=== PATIENT | male | born 1985 | race Caucasian/White ===

== ENCOUNTER 2016-09-11 10:24 | Emergency (ER) | payer MEDICARE, MEDICAID, OTHER ==
[~2016-09-11] VITALS: Ht 167.6 cm; Wt 96.0 kg
[~2016-09-11 10:24] MED LIST: CYMB60CA PO; GEOD80CA PO; LISI-363 PO; METF500 PO; NOVO7030P2 SQ; TRAZ100 PO
[2016-09-11 10:31] VITALS: BP 156/96; PULSE 90; RESP 18; TEMP 97.8; O2SAT 96
[2016-09-11 11:03] LABS: AUTOMATED NEUTROPHIL # 6.9 TH/MM3 (1.8-7.7); BASOPHIL # 0.1 TH/MM3 (0-0.2); BASOPHIL % 0.9 % (0.0-2.0); EOSINOPHIL # 0.5 TH/MM3 (0-0.4); EOSINOPHIL % 4.6 % (0.0-4.0); HEMATOCRIT 46.7 % (39.0-51.0); HEMO FLAGS DIFF FINAL; LYMPH % 28.2 % (9.0-44.0); LYMPHOCYTE # 3.3 TH/MM3 (1.0-4.8); MEAN CELL VOLUME 81.8 FL (80.0-100.0); MEAN CORPUSCULAR HEMOGLOBIN 27.6 PG (27.0-34.0); MEAN CORPUSCULAR HGB CONC 33.8 % (32.0-36.0); MONO % 8.2 % (0.0-8.0); NEUT % 58.1 % (16.0-70.0); PLATELET COUNT 255 TH/MM3 (150-450); RED BLOOD COUNT 5.71 MIL/MM3 (4.50-5.90); WHITE BLOOD COUNT 11.9 TH/MM3 (4.0-11.0)
[2016-09-11 11:24] LABS: BLOOD, URINE NEG (NEG); GLUCOSE,URINE 1000 mg/dL (NEG); KETONE, URINE 10 mg/dL (NEG); NITRITE,URINE NEG (NEG); PH, URINE 5.5 (5.0-8.5); URINE COLOR YELLOW (YELLW/STRAW)
[2016-09-11 11:25] LABS: COMMENT (UR) CULT NOT INDICATED; CULTURE IF INDICATED CULT NOT INDICATED
[2016-09-11 11:29] LABS: AMPHETAMINE, URINE NEG (NEG); BARBITURATES, URINE NEG (NEG); COCAINE, URINE NEG (NEG)
[2016-09-11 11:38] LABS: ANION GAP 10 MEQ/L (5-15); AST (GOT) 22 U/L (15-37); BICARBONATE 26.7 MEQ/L (21.0-32.0); BLOOD UREA NITROGEN 12 MG/DL (7-18); CHLORIDE 103 MEQ/L (98-107); GLOMERULAR FILTRATION RATE 97 ML/MIN (>89); POTASSIUM 4.4 MEQ/L (3.5-5.1); SODIUM (NA) 140 MEQ/L (136-145)
[2016-09-11 11:42] LABS: ALKALINE PHOSPHATASE 77 U/L (45-117); ALT (GPT) 15 U/L (12-78); TOTAL BILIRUBIN ADULT 0.2 MG/DL (0.2-1.0)
[2016-09-11 12:55] VITALS: BP 148/88; PULSE 89; RESP 20; O2SAT 97
--- NOTE | 2016-09-11 13:19 | PD ---
HPI Chief Complaint: Psychiatric Symptoms Time Seen by Provider: 13:16 Travel History International Travel<30 days: No Contact w/Intl Traveler<30days: No Traveled to known affect area: No History of Present Illness HPI 31-year-old male presents to the emergency Department under Damon act by local police. The patient has a history of schizophrenia. According the Damon act, his mother stated that he took 15 Klonopin today. The patient states he took 5 or 6 Klonopin. The patient denies any thoughts of wanting to hurt himself or anybody else at this time. He apparently has the mental capacity of a 10-year- old according to the Damon act. The patient is alert and oriented to person, place, time. The patient denies any medical complaints at this time. He does have a history of diabetes. He does admit to drinking alcohol and smoking marijuana. PFSH Past Medical History Arthritis: No Asthma: No Anxiety: Yes Depression: Yes Heart Rhythm Problems: No Cancer: No High Cholesterol: Yes Chemotherapy: No Chest Pain: No Congestive Heart Failure: No COPD: No Cerebrovascular Accident: No Diabetes: Yes Patient Takes Glucophage: Yes Diminished Hearing: No Gastrointestinal Disorders: Yes (APPENDECTOMY) GERD: No Genitourinary: No Hiatal Hernia: No Hypertension: Yes Immune Disorder: No Kidney Stones: No Musculoskeletal: No Neurologic: Yes (diabetic neuropathy) Psychiatric: Yes (SCHIZOAFFECTIVE DO) Reproductive: No Respiratory: No Migraines: No Myocardial Infarction: No Radiation Therapy: No Renal Failure: No Schizophrenia: Yes Seizures: No Sickle Cell Disease: No Sleep Apnea: No Thyroid Disease: No Ulcer: No Tetanus Vaccination: > 5 Years Past Surgical History Abdominal Surgery: No Appendectomy: Yes Cardiac Surgery: No Ear Surgery: No Endocrine Surgery: No Eye Surgery: No Genitourinary Surgery: Yes (APPENDECTOMY) Gynecologic Surgery: No Insulin Pump: No Joint Replacement: No Neurologic Surgery: No Oral Surgery: No Pacemaker: No Thoracic Surgery: No Tonsillectomy: Yes Other Surgery: Yes (TONSILLECTOMY APPENDECTOMY ) Social History Alcohol Use: Yes (daily - liquor, beer, rubbing alcohol) Tobacco Use: Yes (1ppd) Substance Use: Yes Allergies-Medications (Allergen,Severity, Reaction): Coded Allergies: [place] (Unverified Allergy, Unknown, 09/11/16) Reported Meds & Prescriptions Reported Meds & Active Scripts Active Review of Systems Except as stated in HPI: all other systems reviewed are Neg Physical Exam Narrative GENERAL: Well-developed well-nourished male patient, afebrile. SKIN: Warm and dry. HEAD: Normocephalic. Atraumatic. EYES: No scleral icterus. No injection or drainage. NECK: Supple, trachea midline. No JVD or lymphadenopathy. CARDIOVASCULAR: Regular rate and rhythm without murmurs, gallops, or rubs. RESPIRATORY: Breath sounds equal bilaterally. No accessory muscle use. Lungs sounds are clear to auscultation. GASTROINTESTINAL: Abdomen soft, non-tender, nondistended. MUSCULOSKELETAL: No cyanosis, or edema. BACK: Nontender without obvious deformity. No CVA tenderness. PSYCHIATRIC: No delusional thought processes. No hallucinations. Data Data Last Documented VS Vital Signs Date Time Temp Pulse Resp B/P Pulse Ox O2 Delivery O2 Flow Rate FiO2 09/11/16 12:55 89 20 148/88 97 09/11/16 10:31 97.8 Orders Complete Blood Count With Diff (09/11/16 10:46) Comprehensive Metabolic Panel (09/11/16 10:46) Psych Screen (09/11/16 10:46) Urinalysis - C+S If Indicated (09/11/16 10:52) Salicylates (Aspirin) (09/11/16 10:52) Drug Screen, Random Urine (09/11/16 10:54) Alcohol (Ethanol) (09/11/16 10:54) Electrocardiogram (09/11/16 ) Tylenol (Acetaminophen) (09/11/16 13:14) Call Poison Control (09/11/16 13:14) Diet Diabetic (09/11/16 Dinner) Insulin Human Regular Inj (Novolin R Inj (09/11/16 15:45) Labs Laboratory Tests Test 09/11/16 09/11/16 09/11/16 10:30 10:40 10:50 Salicylates Level 2.3 MG/DL Urine Color YELLOW Urine Turbidity CLEAR Urine pH 5.5 Urine Specific [place] 1.042 Urine Protein NEG mg/dL Urine Glucose (UA) 1000 mg/dL Urine Ketones 10 mg/dL Urine Occult Blood NEG Urine Nitrite NEG Urine Bilirubin NEG Urine Urobilinogen LESS THAN 2.0 MG/DL Urine Leukocyte Esterase NEG Urine RBC LESS THAN 1 /hpf Urine WBC LESS THAN 1 /hpf Microscopic Urinalysis Comment CULT NOT INDICATED Urine Opiates Screen NEG Urine Barbiturates Screen NEG Urine Amphetamines Screen NEG Urine Benzodiazepines Screen NEG Urine Cocaine Screen NEG Urine Cannabinoids Screen POS White Blood Count 11.9 TH/MM3 Red Blood Count 5.71 MIL/MM3 Hemoglobin 15.8 GM/DL Hematocrit 46.7 % Mean Corpuscular Volume 81.8 FL Mean Corpuscular Hemoglobin 27.6 PG Mean Corpuscular Hemoglobin 33.8 % Concent Red Cell Distribution Width 16.0 % Platelet Count 255 TH/MM3 Mean Platelet Volume 8.3 FL Neutrophils (%) (Auto) 58.1 % Lymphocytes (%) (Auto) 28.2 % Monocytes (%) (Auto) 8.2 % Eosinophils (%) (Auto) 4.6 % Basophils (%) (Auto) 0.9 % Neutrophils # (Auto) 6.9 TH/MM3 Lymphocytes # (Auto) 3.3 TH/MM3 Monocytes # (Auto) 1.0 TH/MM3 Eosinophils # (Auto) 0.5 TH/MM3 Basophils # (Auto) 0.1 TH/MM3 CBC Comment DIFF FINAL Differential Comment Sodium Level 140 MEQ/L Potassium Level 4.4 MEQ/L Chloride Level 103 MEQ/L Carbon Dioxide Level 26.7 MEQ/L Anion Gap 10 MEQ/L Blood Urea Nitrogen 12 MG/DL Creatinine 0.90 MG/DL Estimat Glomerular Filtration 97 ML/MIN Rate Random Glucose 320 MG/DL Calcium Level 8.4 MG/DL Total Bilirubin 0.2 MG/DL Aspartate Amino Transf 22 U/L (AST/SGOT) Alanine Aminotransferase 15 U/L (ALT/SGPT) Alkaline Phosphatase 77 U/L Total Protein 6.6 GM/DL Albumin 3.3 GM/DL Acetaminophen Level LESS THAN 2.0 MCG/ML Ethyl Alcohol Level LESS THAN 3 MG/DL MDM Medical Decision Making Medical Screen Exam Complete: Yes Emergency Medical Condition: Yes Medical Record Reviewed: Yes Differential Diagnosis Suicidal ideation versus drug-induced mood disorder versus schizophrenia versus bipolar versus Klonopin overdose Narrative Course 31-year-old male presents to the emergency Department under Damon act for suicidal ideation. According the Damon act, he took 15 Klonopin. However, the patient states he took 5 or 6 and "gave the rest away". CBC shows leukocytosis of 11.9. CMP shows glucose of 320. Urine drug screen is positive for cannabinoids. Alcohol level is less than 3. Salicylate level is 2.3. Tylenol level is less than 2.0. EKG shows sinus rhythm, heart rate 86, no acute ST changes. 1436 - I spoke to poison control who recommended supportive care, monitor for a minimum of 4 hours. Patient was observed in the emergency department for 5-1/2 hours. Patient remains asymptomatic and states he feels fine. He states he would like to talk to the psychiatrist "like to go home". Patient is medically cleared for psychiatric screening and disposition. Mental health screening discussed with the patient. Psychiatric screen ordered. Diagnosis Primary Impression: Schizophrenia Qualified Code: F20.9 - Schizophrenia, unspecified type Additional Impression: Uncontrolled diabetes mellitus Qualified Code: E11.8 - Uncontrolled type 2 diabetes mellitus with complication, unspecified director long term care insulin use status Additional Instructions: Patient is medically cleared for psychiatric screening and disposition. Condition: Stable Dana Travis RANDEE Sep 11, 2016 13:19
[2016-09-11] MEDS ORDERED: INSULIN HUMAN REGULAR 1,000 UNITS/10 ML VIAL SQ ONE (15:45)
[2016-09-11 18:54] VITALS: BP_SYST 112; BP_SYST 155; BP_DIAS 72; BP_DIAS 98; PULSE 90; RESP 18; TEMP 97.6; TEMP 98.3; O2SAT 96; O2SAT 99
[2016-09-11] MEDS ORDERED: SERO100T PO (19:43)
[2016-09-11] MEDS ORDERED: CLON1 PO (19:43)
[2016-09-11] MEDS ORDERED: HUMALOG 70/30 (19:43)
[2016-09-11] MEDS ORDERED: ZOLO50TA PO (19:43)
[2016-09-11] MEDS ORDERED: GEOD80CA PO (19:43)
[2016-09-11 22:16] VITALS: BP 134/90; PULSE 95; RESP 19; O2SAT 98
[2016-09-12 02:09] VITALS: BP 155/93; PULSE 93; RESP 18; O2SAT 95
[2016-09-12 06:30] VITALS: BP 149/88; PULSE 90; RESP 18; O2SAT 95
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
--- NOTE | 2016-09-12 23:33 | EKG ---
Date Performed: 09/11/2016 Time Performed: 14:28:32 PTAGE: 31 years EKG: Sinus rhythm NONSPECIFIC T-WAVE ABNORMALITY BORDERLINE ECG PREVIOUS TRACING : 03/08/1999 19.29 DOCTOR: Doreen Rodarte Interpretating Date/Time 09/12/2016 23:31:02
== END 2016-09-12 12:10 | disposition home or self-care (01) ==
LOC: NEDAMB 10:24 → NEPJ 09-12 12:10
DX: F25.1 Schizoaffective disorder, depressive type (principal); E11.65 Type 2 diabetes mellitus with hyperglycemia
CPT/HCPCS: 80053; 80307; 81001; 85025; 93005; 96372; 99283; J1815; 80320; 80329; G0480

== ENCOUNTER 2017-08-17 13:50 | Emergency (ER) | payer MEDICARE, MEDICAID, OTHER ==
[~2017-08-17 13:50] MED LIST changes: +CLON1 PO; -CYMB60CA PO; +HUMALOG 70/30; -LISI-363 PO; -METF500 PO; -NOVO7030P2 SQ; +SERO100T PO; -TRAZ100 PO; +ZOLO50TA PO
[2017-08-17 14:34] VITALS: BP 147/94; PULSE 106; RESP 15; TEMP 98.1; O2SAT 98
--- NOTE | 2017-08-17 14:34 | PD ---
HPI Chief Complaint: Psychiatric Symptoms Time Seen by Provider: 14:30 Travel History International Travel<30 days: No Contact w/Intl Traveler<30days: No Traveled to known affect area: No History of Present Illness HPI 32-year-old male who reports a history of schizophrenia, bipolar disorder, anxiety, diabetes, presents under Damon act initiated by the police department. According to his paperwork, "subjects suffers from a host mental health issues and is prescribed medication for those conditions. On this date, the subjects that he had not taken or had his medication in more than a week, and was having thoughts of harming himself. Subject was compliant and appeared to be in distress. Subject was taken into custody under the Damon act." The patient reports passive suicidal thoughts. He reports that he was fired from his psychiatrist's office several weeks ago and has been out of his medications since then. Symptoms are moderate, aggravated by lack of medications or access to psychiatric services, no alleviating factors. Endorses occasional alcohol, marijuana, cocaine use. No other complaints at this time. PFSH Past Medical History Arthritis: No Asthma: No Anxiety: Yes Depression: Yes Heart Rhythm Problems: No Cancer: No Cardiovascular Problems: Yes (HTN) High Cholesterol: Yes Chemotherapy: No Chest Pain: No Congestive Heart Failure: No COPD: No Cerebrovascular Accident: No Diabetes: Yes Patient Takes Glucophage: Yes Diminished Hearing: No Gastrointestinal Disorders: Yes (APPENDECTOMY) GERD: No Genitourinary: No Hiatal Hernia: No Hypertension: Yes Immune Disorder: No Kidney Stones: No Musculoskeletal: No Neurologic: Yes (diabetic neuropathy) Psychiatric: Yes (SCHIZOAFFECTIVE DO) Reproductive: No Respiratory: No Migraines: No Myocardial Infarction: No Radiation Therapy: No Renal Failure: No Schizophrenia: Yes Seizures: No Sickle Cell Disease: No Sleep Apnea: No Thyroid Disease: No Ulcer: No Tetanus Vaccination: < 5 Years Past Surgical History Abdominal Surgery: No Appendectomy: Yes Cardiac Surgery: No Ear Surgery: No Endocrine Surgery: No Eye Surgery: No Genitourinary Surgery: Yes (APPENDECTOMY) Gynecologic Surgery: No Insulin Pump: No Joint Replacement: No Neurologic Surgery: No Oral Surgery: No Pacemaker: No Thoracic Surgery: No Tonsillectomy: Yes Other Surgery: Yes (TONSILLECTOMY APPENDECTOMY ) Social History Alcohol Use: Yes (daily - liquor, beer, rubbing alcohol) Tobacco Use: Yes (1ppd) Substance Use: Yes (POT COCAINE) Allergies-Medications (Allergen,Severity, Reaction): Coded Allergies: lithium (Unverified Allergy, Unknown, 02/24/17) Reported Meds & Prescriptions Reported Meds & Active Scripts Active Reported [Humalog 70/30] 80 BID Seroquel (Quetiapine Fumarate) 100 Mg Tab 100 Mg PO HS Klonopin (Clonazepam) 1 Mg Tab 1 Mg PO TID Zoloft (Sertraline HCl) 50 Mg Tab 0 PO DAILY Geodon (Ziprasidone) 80 Mg Cap 80 Mg PO BID Review of Systems Except as stated in HPI: all other systems reviewed are Neg Physical Exam Narrative GENERAL: Well-developed well-nourished male in no acute distress SKIN: Warm and dry. HEAD: Atraumatic. Normocephalic. EYES: Pupils equal and round. No scleral icterus. No injection or drainage. ENT: No nasal bleeding or discharge. Mucous membranes pink and moist. NECK: Trachea midline. No JVD. CARDIOVASCULAR: Regular rate and rhythm. No murmur appreciated. RESPIRATORY: No accessory muscle use. Clear to auscultation. Breath sounds equal bilaterally. GASTROINTESTINAL: Abdomen soft, non-tender, nondistended. Hepatic and splenic margins not palpable. MUSCULOSKELETAL: No obvious deformities. No clubbing. No cyanosis. No edema. NEUROLOGICAL: Awake and alert. No obvious cranial nerve deficits. Motor grossly within normal limits. Normal speech. PSYCHIATRIC: Appropriate mood and affect; insight and judgment normal. Data Data Last Documented VS Vital Signs Date Time Temp Pulse Resp B/P (MAP) Pulse Ox O2 Delivery O2 Flow Rate FiO2 08/17/17 14:34 98.1 106 15 147/94 (111) 98 Room Air Orders Orders Complete Blood Count With Diff (08/17/17 14:31) Comprehensive Metabolic Panel (08/17/17 14:31) Thyroid Stimulating Hormone (08/17/17 14:31) Psych Screen (08/17/17 14:31) Drug Screen, Random Urine (08/17/17 14:31) Alcohol (Ethanol) (08/17/17 14:31) Iv Access Insert/Monitor (08/17/17 14:51) Sodium Chlor 0.9% 1000 Ml Inj (Ns 1000 M (08/17/17 14:51) Insulin Human Regular Inj (Novolin R Inj (08/17/17 16:30) Labs Laboratory Tests Test 08/17/17 15:00 White Blood Count 10.8 TH/MM3 Red Blood Count 5.19 MIL/MM3 Hemoglobin 16.4 GM/DL Hematocrit 45.7 % Mean Corpuscular Volume 88.1 FL Mean Corpuscular Hemoglobin 31.5 PG Mean Corpuscular Hemoglobin Concent 35.8 % Red Cell Distribution Width 13.4 % Platelet Count 330 TH/MM3 Mean Platelet Volume 8.7 FL Neutrophils (%) (Auto) 53.2 % Lymphocytes (%) (Auto) 32.7 % Monocytes (%) (Auto) 10.4 % Eosinophils (%) (Auto) 3.0 % Basophils (%) (Auto) 0.7 % Neutrophils # (Auto) 5.8 TH/MM3 Lymphocytes # (Auto) 3.5 TH/MM3 Monocytes # (Auto) 1.1 TH/MM3 Eosinophils # (Auto) 0.3 TH/MM3 Basophils # (Auto) 0.1 TH/MM3 CBC Comment DIFF FINAL Differential Comment Blood Urea Nitrogen 8 MG/DL Creatinine 0.92 MG/DL Random Glucose 498 MG/DL Total Protein 7.3 GM/DL Albumin 3.4 GM/DL Calcium Level 8.3 MG/DL Alkaline Phosphatase 79 U/L Aspartate Amino Transf (AST/SGOT) 9 U/L Alanine Aminotransferase (ALT/SGPT) 13 U/L Total Bilirubin 0.4 MG/DL Sodium Level 133 MEQ/L Potassium Level 3.8 MEQ/L Chloride Level 98 MEQ/L Carbon Dioxide Level 27.0 MEQ/L Anion Gap 8 MEQ/L Estimat Glomerular Filtration Rate 94 ML/MIN Thyroid Stimulating Hormone 3rd Gen 1.050 uIU/ML Urine Opiates Screen NEG Urine Barbiturates Screen NEG Urine Amphetamines Screen NEG Urine Benzodiazepines Screen NEG Urine Cocaine Screen POS Urine Cannabinoids Screen POS Ethyl Alcohol Level LESS THAN 3 MG/DL MDM Medical Decision Making Medical Screen Exam Complete: Yes Emergency Medical Condition: Yes Medical Record Reviewed: Yes Differential Diagnosis Suicidal ideation, schizophrenia, major depressive disorder, acute psychosis, substance induced mood disorder, medication noncompliance Narrative Course Mental health screening discussed with the patient. Psychiatric screen ordered. Lab work reveals glucose 498, noncompliant with diabetic regimen over the past week. He will be given IV fluids, insulin bolus. Drug screen positive for cocaine and cannabinoids. Mental health screening discussed with the patient. Psychiatric screen ordered. Medically cleared for psychiatric disposition. Diagnosis Primary Impression: Suicidal ideation Additional Impressions: Polysubstance abuse Hyperglycemia Fran Garner Aug 17, 2017 14:34
[2017-08-17] MEDS ORDERED: SODIUM CHLOR 0.9% 1000 ML INJ 1,000 ML IV SCH (14:51)
[2017-08-17 15:48] LABS: AUTOMATED NEUTROPHIL # 5.8 TH/MM3 (1.8-7.7); BASOPHIL # 0.1 TH/MM3 (0-0.2); BASOPHIL % 0.7 % (0.0-2.0); EOSINOPHIL # 0.3 TH/MM3 (0-0.4); HEMATOCRIT 45.7 % (39.0-51.0); HEMOGLOBIN 16.4 GM/DL (13.0-17.0); LYMPH % 32.7 % (9.0-44.0); LYMPHOCYTE # 3.5 TH/MM3 (1.0-4.8); MEAN CELL VOLUME 88.1 FL (80.0-100.0); MEAN CORPUSCULAR HEMOGLOBIN 31.5 PG (27.0-34.0); MEAN CORPUSCULAR HGB CONC 35.8 % (32.0-36.0); MEAN PLATELET VOLUME 8.7 FL (7.0-11.0); MONO % 10.4 % (0.0-8.0); MONOCYTE # 1.1 TH/MM3 (0-0.9); NEUT % 53.2 % (16.0-70.0); PLATELET COUNT 330 TH/MM3 (150-450); RED BLOOD COUNT 5.19 MIL/MM3 (4.50-5.90); RED CELL DISTRIBUTION WIDTH 13.4 % (11.6-17.2); WHITE BLOOD COUNT 10.8 TH/MM3 (4.0-11.0)
[2017-08-17 16:16] LABS: ALBUMIN 3.4 GM/DL (3.4-5.0); ALKALINE PHOSPHATASE 79 U/L (45-117); ALT (GPT) 13 U/L (12-78); AST (GOT) 9 U/L (15-37); BLOOD UREA NITROGEN 8 MG/DL (7-18); CALCIUM 8.3 MG/DL (8.5-10.1); CHLORIDE 98 MEQ/L (98-107); CREATININE 0.92 MG/DL (0.60-1.30); GLOMERULAR FILTRATION RATE 94 ML/MIN (>89); SODIUM (NA) 133 MEQ/L (136-145); TOTAL BILIRUBIN ADULT 0.4 MG/DL (0.2-1.0); TOTAL PROTEIN 7.3 GM/DL (6.4-8.2)
[2017-08-17 16:19] LABS: GLUCOSE,RANDOM 498 MG/DL (74-106)
[2017-08-17] MEDS ORDERED: INSULIN HUMAN REGULAR 1,000 UNITS/10 ML VIAL IV PUSH ONE (16:30)
[2017-08-17 20:19] VITALS: BP 188/108; PULSE 93; RESP 16; TEMP 98.5; O2SAT 98
[2017-08-18 03:15] VITALS: BP 153/93; PULSE 89; RESP 18; O2SAT 96
[2017-08-18 06:35] VITALS: BP 162/95; PULSE 92; RESP 18; O2SAT 98
[2017-08-18] MEDS ORDERED: INSU100V2 SQ (09:57)
[2017-08-18] MEDS ORDERED: HUMU70IN SQ (09:59)
[2017-08-18] MEDS ORDERED: METF500T PO (10:01)
[2017-08-18] MEDS ORDERED: LEVEMIR SQ (10:11)
[2017-08-18] MEDS ORDERED: SERO300T PO ×2 (10:12→13:05)
[2017-08-18] MEDS ORDERED: SPIRCAP INH (10:12)
[2017-08-18] MEDS ORDERED: HYDR12.57 PO (10:13)
[2017-08-18] MEDS ORDERED: ALBUAER3 INH (10:13)
[2017-08-18] MEDS ORDERED: GEOD80CA PO ×2 (10:14→13:06)
[2017-08-18] MEDS ORDERED: DIVA500T PO (10:17)
[2017-08-18] MEDS ORDERED: CLON0.1T PO (10:17)
[2017-08-18] MEDS ORDERED: SERT-129 PO (10:18)
[2017-08-18 11:41] VITALS: BP 178/104; PULSE 95; RESP 18; O2SAT 96
[2017-08-18] MEDS ORDERED: cloNIDine HCL 0.1 MG TAB PO ONE (11:45)
[2017-08-18] MEDS ORDERED: INSULIN HUMAN REGULAR 1,000 UNITS/10 ML VIAL SQ ONE ×2 (11:45→13:45)
--- NOTE | 2017-08-18 13:03 | PD ---
History of Present Illness Chief Complaint: Psychiatric Symptoms Time Seen by Provider: 12:55 Travel History International Travel<30 Days: No Contact w/Intl Traveler<30days: No Known affected area: No Legal Status Legal Status: Damon Act Damon Act Signed By: Dontae Smith History of Present Illness: History of Present Illness HPI 32-year-old male with history of schizoaffective disorder, substance use disorder who presents under Damon act initiated by the police department. According to his paperwork, "subjects suffers from a host mental health issues and is prescribed medication for those conditions. On this date, the subjects that he had not taken or had his medication in more than a week, and was having thoughts of harming himself. Subject was compliant and appeared to be in distress. Subject was taken into custody under the Damon act." He reports that he was fired from his psychiatrist's office, Dr. Garcia for missing appointments several weeks ago and has been out of his medications since then. He also reports that after approximately 9 months of being drug-free he had some cocaine in the past week. He reports he smokes marijuana on a more frequent basis. Electronic medical record is review. The patient has had several visits to emergency department for evaluation of Damon act. His last psychiatric admission here at our unit was in 2013. Current toxicology is positive for cocaine and cannabinoids. The patient was monitored in secure environment and he presented no suicidality and no behavioral concerns. Patient is seen with [facility] case management social worker present during evaluation. He is alert , oriented male with disheveled appearance and a very long cunningham. He is engaging and cooperative. His speech is clear and logical. There is no evidence of any hallucinations, no delusions, no paranoia. No significant symptom of depression is noted. He continues to deny any suicidal or homicidal ideation. He does state that he has been off his medications for approximately 3 weeks after having missed multiple appointments with this outpatient psychiatrist. He wants to start his medication once again as he felt that he did well on his medication. He is asking for referrals for community psychiatrist. The remainder of psychiatric review of systems is negative. PFSH Past Medical History Arthritis: No Asthma: No Anxiety: Yes Depression: Yes Heart Rhythm Problems: No Cancer: No Cardiovascular Problems: Yes (HTN) High Cholesterol: Yes Chemotherapy: No Chest Pain: No Congestive Heart Failure: No COPD: No Cerebrovascular Accident: No Diabetes: Yes Patient Takes Glucophage: Yes Diminished Hearing: No Gastrointestinal Disorders: Yes (APPENDECTOMY) GERD: No Genitourinary: No Hiatal Hernia: No Hypertension: Yes Immune Disorder: No Kidney Stones: No Musculoskeletal: No Neurologic: Yes (diabetic neuropathy) Psychiatric: Yes (SCHIZOAFFECTIVE DO) Reproductive: No Respiratory: No Migraines: No Myocardial Infarction: No Radiation Therapy: No Renal Failure: No Schizophrenia: Yes Seizures: No Sickle Cell Disease: No Sleep Apnea: No Thyroid Disease: No Ulcer: No Tetanus Vaccination: < 5 Years Past Surgical History Abdominal Surgery: No Appendectomy: Yes Cardiac Surgery: No Ear Surgery: No Endocrine Surgery: No Eye Surgery: No Genitourinary Surgery: Yes (APPENDECTOMY) Gynecologic Surgery: No Insulin Pump: No Joint Replacement: No Neurologic Surgery: No Oral Surgery: No Pacemaker: No Thoracic Surgery: No Tonsillectomy: Yes Other Surgery: Yes (TONSILLECTOMY APPENDECTOMY ) Psychiatric History Psychiatric History Hx Psychiatric Treatment: HX OF SUBSTANCE INDUCED MOOD DO, SCHIZOAFFECTIVE DO, BIPOLAR. LAST HOSPITALIZATION WAS THE [facility] IN APR 2015. History of Inpatient Treatment: Yes Guns or firearms in home: No Social History Single male. He is living with his brother and a girlfriend. The patient is on disability. Appears to be of lower intellectual functioning. Hx Alcohol Use: Yes (daily - liquor, beer, rubbing alcohol) Hx Tobacco Use: Yes (1ppd) Hx Substance Use: Yes (POT COCAINE) Substance Use Type: Alcohol, Crack, Marijuana, Prescription Medications Hx of Substance Use Treatment: Yes Family Psychiatric History Negative Allergies-Medications (Allergen,Severity, Reaction): Coded Allergies: lithium (Unverified Allergy, Unknown, 08/18/17) Allergy to [place] already in records. On 08/18/2017 - Per Pat at [email or web address] in [place], [place]. [phone]. Per [facility] patient has NKA. Last picked up from their location in May 2017. Patient has been treated in 2017 at [facility] per pharmacy. Reported Meds & Prescriptions Reported Meds & Active Scripts Active Reported Sertraline (Sertraline HCl) 100 Mg Tab 100 Mg PO DAILY Clonidine (Clonidine HCl) 0.1 Mg Tab 0.1 Mg PO BID Divalproex DR (Divalproex Sodium) 500 Mg Tabdr 1,000 Mg PO HS Geodon (Ziprasidone) 80 Mg Cap 80 Mg PO BID Proair Hfa 8.5 GM Inh (Albuterol Sulfate) 90 Mcg/Act Aer 1 Puff INH Q4-6H PRN 108 mcg/actuation Hydrochlorothiazide 12.5 Mg Cap 12.5 Mg PO DAILY Spiriva Handihaler (Tiotropium Inh) 18 Mcg Cap 18 Mcg INH DAILY 1 capsule = 18 mcg Seroquel (Quetiapine Fumarate) 300 Mg Tab 600 Mg PO HS Levemir Inj (Insulin Detemir) 1,000 unit/ 10 ML Vial 30 Units SQ BID Do not mix with any other Insulin. Metformin (Metformin HCl) 500 Mg Tab 500 Mg PO BIDPC Humulin 70-30 Inj (Insulin NPH Isophane-Reg (Human) 70-30 Inj) 1,000 Unit/10 Ml Vial 55 SQ BID Humulin R Inj (Insulin Human Regular) 1,000 Unit/10 Ml Vial Units SQ DIRECTED Review of Systems Psychiatric: DENIES: Anxiety, Confusion, Mood changes, Depression, Hallucinations, Agitation, Suicidal Ideation, Homicidal Ideation, Delusions Except as stated in HPI: all other systems reviewed are Neg Mental Status Examination Appearance: Disheveled Consciousness: Alert Orientation: x4 Motor Activity: Normal gait Speech: Unremarkable Language: Adequate Fund of Knowledge: Adequate Attention and Concentration: Adequate Memory: Unremarkable Mood: Appropriate Affect: Appropriate Thought Process & Associations: Intact, Logical, Goal directed Thought Content: Appropriate Hallucination Type: None Delusion Type: None Suicidal Ideation: No Suicidal Plan: No Suicidal Intention: No Homicidal Ideation: No Homicidal Plan: No Homicidal Intention: No Insight: Fair Judgment: Adequate MDM Medical Decision Making Medical Record Reviewed: Yes Assessment/Plan History of Present Illness 32-year-old male with history of schizoaffective disorder, substance use disorder who presents under Damon act initiated by the police department. According to his paperwork, "subjects suffers from a host mental health issues and is prescribed medication for those conditions. On this date, the subjects that he had not taken or had his medication in more than a week, and was having thoughts of harming himself. Patient was monitored in secure environment and presented no suicidality. Patient did not present any acute symptoms of psychosis, cristian or hypomania. The patient is wanting to get a prescription to restart his psychiatric medications as well as requesting to have referrals for an outpatient psychiatrist patient at this time he does not meet criteria for the Damon act and is requesting to be discharge. He is provided psychoeducation. Encourage abstinence from substances. At this time he is psychiatrically clear for discharge from the ED. Damon act has been lifted. Orders Orders Complete Blood Count With Diff (08/17/17 14:31) Comprehensive Metabolic Panel (08/17/17 14:31) Thyroid Stimulating Hormone (08/17/17 14:31) Psych Screen (08/17/17 14:31) Drug Screen, Random Urine (08/17/17 14:31) Alcohol (Ethanol) (08/17/17 14:31) Iv Access Insert/Monitor (08/17/17 14:51) Sodium Chlor 0.9% 1000 Ml Inj (Ns 1000 M (08/17/17 14:51) Insulin Human Regular Inj (Novolin R Inj (08/17/17 16:30) Diet 2000 Ada Cons Carb (08/17/17 Dinner) Diet Diabetic (08/18/17 Breakfast) Diet Diabetic (08/18/17 Lunch) Insulin Human Regular Inj (Novolin R Inj (08/18/17 11:45) Clonidine (Catapres) (08/18/17 11:45) Results Vital Signs Date Time Temp Pulse Resp B/P (MAP) Pulse Ox O2 Delivery O2 Flow Rate FiO2 08/18/17 11:41 95 18 96 Room Air 178/104 (128) 08/18/17 06:35 92 18 162/95 (117) 98 Room Air 08/18/17 03:15 89 18 153/93 (113) 96 Room Air 08/17/17 20:19 98.5 93 16 188/108 (134) 98 Room Air 08/17/17 14:34 98.1 106 15 147/94 (111) 98 Room Air Laboratory Tests Test 08/17/17 15:00 White Blood Count 10.8 Red Blood Count 5.19 Hemoglobin 16.4 Hematocrit 45.7 Mean Corpuscular Volume 88.1 Mean Corpuscular Hemoglobin 31.5 Mean Corpuscular Hemoglobin Concent 35.8 Red Cell Distribution Width 13.4 Platelet Count 330 Mean Platelet Volume 8.7 Neutrophils (%) (Auto) 53.2 Lymphocytes (%) (Auto) 32.7 Monocytes (%) (Auto) 10.4 Eosinophils (%) (Auto) 3.0 Basophils (%) (Auto) 0.7 Neutrophils # (Auto) 5.8 Lymphocytes # (Auto) 3.5 Monocytes # (Auto) 1.1 Eosinophils # (Auto) 0.3 Basophils # (Auto) 0.1 CBC Comment DIFF FINAL Differential Comment Blood Urea Nitrogen 8 Creatinine 0.92 Random Glucose 498 Total Protein 7.3 Albumin 3.4 Calcium Level 8.3 Alkaline Phosphatase 79 Aspartate Amino Transf (AST/SGOT) 9 Alanine Aminotransferase (ALT/SGPT) 13 Total Bilirubin 0.4 Sodium Level 133 Potassium Level 3.8 Chloride Level 98 Carbon Dioxide Level 27.0 Anion Gap 8 Estimat Glomerular Filtration Rate 94 Thyroid Stimulating Hormone 3rd Gen 1.050 Urine Opiates Screen NEG Urine Barbiturates Screen NEG Urine Amphetamines Screen NEG Urine Benzodiazepines Screen NEG Urine Cocaine Screen POS Urine Cannabinoids Screen POS Ethyl Alcohol Level LESS THAN 3 Diagnosis Primary Impression: Substance induced mood disorder Additional Impression: Schizoaffective disorder Ruled Out: Suicidal ideation Psychiatrically Cleared: Yes Med/ Other Pt Specific Info: Prescription(s) given Prescriptions Sertraline (Zoloft) 100 Mg Tab 100 MG PO DAILY for Depression Control, #30 TAB 0 Refills Prov: Steff Blanco 08/18/17 Ziprasidone (Geodon) 80 Mg Cap 80 MG PO BID for Psychosis, #60 CAP 0 Refills Prov: Steff Blanco 08/18/17 Quetiapine (Seroquel) 300 Mg Tab 600 MG PO HS for Anxiety and/or Insomnia for 30 Days, #60 TAB 0 Refills Prov: Steff Blanco 08/18/17 Disposition: 01 DISCHARGE HOME Condition: Stable Problem Qualifiers Steff Blanco Aug 18, 2017 13:03
[2017-08-18] MEDS ORDERED: ZOLO100T PO (13:08)
[2017-08-18 13:14] VITALS: BP 160/99; PULSE 82; RESP 18; TEMP 98; O2SAT 99
--- NOTE | 2017-08-18 13:58 | PD ---
Physical Exam Time Seen by Provider: 13:46 RANDEE Diaz has evaluated the patient, lifted Damon act and cleared the patient for discharge. Data Data Last Documented VS Vital Signs Date Time Temp Pulse Resp B/P (MAP) Pulse Ox O2 Delivery O2 Flow Rate FiO2 08/18/17 14:06 82 18 163/93 (116) 98 Room Air 08/18/17 13:14 98.0 Orders Orders Complete Blood Count With Diff (08/17/17 14:31) Comprehensive Metabolic Panel (08/17/17 14:31) Thyroid Stimulating Hormone (08/17/17 14:31) Psych Screen (08/17/17 14:31) Drug Screen, Random Urine (08/17/17 14:31) Alcohol (Ethanol) (08/17/17 14:31) Iv Access Insert/Monitor (08/17/17 14:51) Sodium Chlor 0.9% 1000 Ml Inj (Ns 1000 M (08/17/17 14:51) Insulin Human Regular Inj (Novolin R Inj (08/17/17 16:30) Diet 2000 Ada Cons Carb (08/17/17 Dinner) Diet Diabetic (08/18/17 Breakfast) Diet Diabetic (08/18/17 Lunch) Insulin Human Regular Inj (Novolin R Inj (08/18/17 11:45) Clonidine (Catapres) (08/18/17 11:45) Insulin Human Regular Inj (Novolin R Inj (08/18/17 13:45) Ed Discharge Order (08/18/17 14:44) Labs Laboratory Tests Test 08/17/17 15:00 White Blood Count 10.8 TH/MM3 Red Blood Count 5.19 MIL/MM3 Hemoglobin 16.4 GM/DL Hematocrit 45.7 % Mean Corpuscular Volume 88.1 FL Mean Corpuscular Hemoglobin 31.5 PG Mean Corpuscular Hemoglobin Concent 35.8 % Red Cell Distribution Width 13.4 % Platelet Count 330 TH/MM3 Mean Platelet Volume 8.7 FL Neutrophils (%) (Auto) 53.2 % Lymphocytes (%) (Auto) 32.7 % Monocytes (%) (Auto) 10.4 % Eosinophils (%) (Auto) 3.0 % Basophils (%) (Auto) 0.7 % Neutrophils # (Auto) 5.8 TH/MM3 Lymphocytes # (Auto) 3.5 TH/MM3 Monocytes # (Auto) 1.1 TH/MM3 Eosinophils # (Auto) 0.3 TH/MM3 Basophils # (Auto) 0.1 TH/MM3 CBC Comment DIFF FINAL Differential Comment Blood Urea Nitrogen 8 MG/DL Creatinine 0.92 MG/DL Random Glucose 498 MG/DL Total Protein 7.3 GM/DL Albumin 3.4 GM/DL Calcium Level 8.3 MG/DL Alkaline Phosphatase 79 U/L Aspartate Amino Transf (AST/SGOT) 9 U/L Alanine Aminotransferase (ALT/SGPT) 13 U/L Total Bilirubin 0.4 MG/DL Sodium Level 133 MEQ/L Potassium Level 3.8 MEQ/L Chloride Level 98 MEQ/L Carbon Dioxide Level 27.0 MEQ/L Anion Gap 8 MEQ/L Estimat Glomerular Filtration Rate 94 ML/MIN Thyroid Stimulating Hormone 3rd Gen 1.050 uIU/ML Urine Opiates Screen NEG Urine Barbiturates Screen NEG Urine Amphetamines Screen NEG Urine Benzodiazepines Screen NEG Urine Cocaine Screen POS Urine Cannabinoids Screen POS Ethyl Alcohol Level LESS THAN 3 MG/DL MDM Supervised Visit with RAUL: No Narrative RANDEE Joyner has evaluated the patient, lifted Nelson salazar and cleared the patient for discharge. Patient is being provided transportation to his home. Patient is a noncompliant insulin-dependent diabetic. I ordered 9 units of regular insulin earlier and repeat blood sugar is 314. I discussed patient with Dr. Vogel, my attending physician, and he recommends 5 units regular insulin and recheck in 30-40 minutes. 1441: BGM recheck 340; Patient ate after last dose of insulin administered. Patient verbalizes he has his insulin and metformin at home and will take metformin upon arrival home. He verbalizes he will start managing his diabetes and follow-up with primary care provider. Patient contracts safety. Denies suicidal or homicidal ideation patient will be provided community resource packet to [facility] for follow-up. Has friends and family for support. Patient was medically cleared by alternate provider prior to psych screening. Patient has been evaluated by psychiatry and and is now cleared for discharge. Diagnosis Primary Impression: Substance induced mood disorder Additional Impressions: Schizoaffective disorder High blood sugar Ruled Out: Suicidal ideation Referrals: [facility] (Out patient) [facility] Primary Care Physician Psychiatrist Shawanda SALAZAR Behavioral Patient Instructions: Diabetic Hyperglycemia (ED), General Instructions, Mood Disorders (ED), Polysubstance Abuse (ED), Schizoaffective Disorder (ED) Additional Instruction: Use insulin and metformin as prescribed and check your blood sugars routinely; follow-up with primary care provider in regards to diabetes management Contract safety to your self and others Stop using drugs Follow-up with psychiatry Follow-up with primary care provider Follow-up with Ean Matos Return to the emergency department immediately with worsening of symptoms Med/Other Pt SpecificInfo: Prescription(s) given Scripts Sertraline (Zoloft) 100 Mg Tab 100 MG PO DAILY for Depression Control, #30 TAB 0 Refills Prov: BlancoSteff Cheryl Ansari [employer] 08/18/17 Ziprasidone (Geodon) 80 Mg Cap 80 MG PO BID for Psychosis, #60 CAP 0 Refills Prov: BlancoSteff Cheryl Ansari [employer] 08/18/17 Quetiapine (Seroquel) 300 Mg Tab 600 MG PO HS for Anxiety and/or Insomnia for 30 Days, #60 TAB 0 Refills Prov: BlancoMarisas Cheryl Ansari RANDEE 08/18/17 Disposition: 01 DISCHARGE HOME Condition: Stable Miya Castellano Aug 18, 2017 13:58
[2017-08-18 14:06] VITALS: BP 163/93; PULSE 82; RESP 18; O2SAT 98
== END 2017-08-18 15:04 | disposition home or self-care (01) ==
LOC: NEDAMB 13:50 → NEPJ 08-18 15:04
DX: F19.94 Other psychoactive substance use, unspecified with psychoactive substance-induced mood disorder (principal); F12.90 Cannabis use, unspecified, uncomplicated; F17.200 Nicotine dependence, unspecified, uncomplicated; E11.65 Type 2 diabetes mellitus with hyperglycemia; E11.40 Type 2 diabetes mellitus with diabetic neuropathy, unspecified; F25.1 Schizoaffective disorder, depressive type; I10 Essential (primary) hypertension; Z79.4 Long term (current) use of insulin; Z79.899 Other long term (current) drug therapy
CPT/HCPCS: 80053; 80307; 84443; 85025; 96372; 96374; 99284; J1815; J7030